=== PATIENT | female | born 1965 | race Caucasian/White ===

== ENCOUNTER → 2020-03-19 | Outpatient (CLI) | payer OTHER ==
[~2020-03-19] MED LIST: ACYC800T PO; CHLO125TA PO; CHLO25TA PO; ISOVUE-370 76% 100ML VIAL As Ordered ONE; LOSA25TA14 PO; MINO50CA3 PO; PRAV20TA2 PO; ROSU10TA6 PO; [UNRECOGNIZED DRUG - CODE] PO
--- NOTE | 2020-04-24 10:39 | REP ---
CT CHEST WITH IV CONTRAST HISTORY: A 6-mm left upper lobe lung nodule. Surveillance. There is apparently also a history of CLL. COMPARISON: CT study 08/28/2019 from [address] outside facility[address] CT CONTRAST DOSE: 75 mL of intravenous Isovue-370 is administered. FINDINGS: Digital preliminary [employer] radiograph is unremarkable. There is a 5-mm noncalcified pulmonary nodule in the left upper lobe projecting today on Page 28 of 99 in series 201 of todays study. This is unchanged in appearance from the 08/28/2019 outside prior study, seven months of stability. There are scattered granulomatous calcified nodules bilaterally, which are also unchanged. No other noncalcified pulmonary nodule is appreciated. There is mild linear fibrosis in the right middle lobe unchanged and in the lingula unchanged. No pleural or pericardial effusion is seen. No adrenal abnormality is observed. The visualized upper abdominal structures are unremarkable. No hilar or mediastinal mass or adenopathy is seen. No pleural or pericardial effusion is noted. No significant bony abnormality is seen. IMPRESSION: Stable chest CT findings since 08/28/2009. Granulomatous calcifications are noted. By [employer], if this patient is considered at risk for lung carcinoma, a follow-up chest CT study can be performed in one year. [facility]
== END ==
LOC: M RAD 10:34
PROVIDERS: ATTEND Internal Medicine Medical Oncology
DX: C91.90 Lymphoid leukemia, unspecified not having achieved remission (principal); R91.1 Solitary pulmonary nodule; J84.10 Pulmonary fibrosis, unspecified
CPT/HCPCS: 71260; Q9967